=== PATIENT | female | born 1945 | race Caucasian/White ===

== ENCOUNTER → 2021-12-18 | Outpatient (CLI) | payer MEDICARE, BC, OTHER ==
[~2021-12-18] MED LIST: CAND16TA17 PO; LOVA40TA PO; SYNT100T PO
== END ==
LOC: M WHC 12:28
PROVIDERS: ATTEND Nurse Practitioner Women's Health
DX: R92.8 Other abnormal and inconclusive findings on diagnostic imaging of breast (principal)
CPT/HCPCS: 76642; 77065; G0279

== ENCOUNTER → 2022-05-23 | Outpatient (CLI) | payer MEDICARE, BC, OTHER | LOC: M WHC 12:27 | PROVIDERS: ATTEND Nurse Practitioner Women's Health | DX: R92.8 Other abnormal and inconclusive findings on diagnostic imaging of breast (principal) | CPT/HCPCS: 77065; G0279 ==